=== PATIENT | female | born 1960 ===

== ENCOUNTER 2024-12-28 06:15 | Day surgery (SDC) | payer OTHER ==
[~2024-12-28 06:15] MED LIST: ACTIVELLA 1 MG1 EACH PO; FOSAMAX70 MG PO; PROMETRIUM200 MG PO; ROSUVASTATIN CAL5 MG PO; SYNTHROID75 MCG PO
[2024-12-28] MEDS ORDERED: CEFAZOLIN SODIUM 1,000 MG VIAL IV ONE (13:00)
[2024-12-28] MEDS ORDERED: KETO10TA2 PO (13:49)
[2024-12-28] MEDS ORDERED: MORPHINE SULFATE 4 MG/ML VIAL IV ONE (14:15)
[2024-12-28] MEDS ORDERED: METHYLERGONOVINE MALEATE 0.2 MG/ML AMPUL IM ONE (17:30)
[2025-01-03] MEDS ORDERED: CEFAZOLIN SODIUM 1,000 MG VIAL IV ONE (12:30)
== END 2024-12-28 17:50 | disposition home or self-care (01) ==
LOC: CIR.AMB 06:15
PROVIDERS: ATTEND Obstetrics & Gynecology
DX: D25.0 Submucous leiomyoma of uterus (principal); N85.00 Endometrial hyperplasia, unspecified